=== PATIENT | female | born 1980 | race Hispanic/Latino ===

== ENCOUNTER 2024-11-10 01:11 | Emergency (ER) | payer OTHER ==
[~2024-11-10] VITALS: Ht 182.9 cm; Wt 103.9 kg
--- NOTE | 2024-11-10 01:34 | ERN ---
General Chief Complaint: Other Problems Stated Complaint: YEAST INFECTION Time Seen by MD: 01:18 Source: patient History of Present Illness Initial Comments 44-year-old female with hypertension comes in because of lower abdominal cramping. She was seen at another hospital earlier today for an upper respiratory tract infection and her throat swabs were negative for COVID strep and influenza. She was given azithromycin. She took one tablet and then a short time later experienced her lower abdominal cramping. Took a shower to help and noted at that time she had a yeast infection in her vagina. Other symptoms include productive cough postnasal drip sinus tenderness Allergies: Coded Allergies: sulfamethoxazole (Unverified Allergy, Unknown, 11/10/24) trimethoprim (Unverified Allergy, Unknown, 11/10/24) Past Medical History Past Medical History: Hypertension Past Surgical History: None Female( History) LMP: Oct 14, 2024 Constitutional: (+) chills EENTM: (-) eye pain, (-) blurred vision, (-) tearing, (-) double vision, (-) ear pain, (-) ear discharge, (-) nose pain, (-) nose congestion, (-) throat pain, (-) Throat swelling, (-) mouth pain, (-) tooth pain, (-) mouth swelling, (-) other documentation Respiratory: (+) cough Cardiovascular: (-) chest pain, (-) edema, (-) palpitations, (-) syncope, (-) dyspnea on exertion, (-) other documentation Gastrointestinal/Abdominal: (-) nausea, (-) vomiting, (-) diarrhea, (-) abdominal pain, (-) abdominal distention, (-) constipation, (-) rectal bleeding, (-) dark stool/melena, (-) other documentation Genitourinary: (+) vaginal discharge Musculoskeletal: (-) Neck pain, (-) back pain, (-) Flank Pain, (-) joint pain, (-) joint swelling, (-) muscle pain, (-) muscle stiffness, (-) gout, (-) other documentation Physical Exam General Appearance: (+) mild distress Orientation: (+) alert, (+) oriented x 3 Head/Face Trauma: No Eye: bilateral eye normal inspection, bilateral eye PERRL, bilateral eye EOMI Ear, Nose, Throat: (+) hearing grossly normal, (+) normal ENT inspection, (+) moist mucous membraine Neck: (+) normal inspection, (+) supple, (+) full range of motion Respiratory: (+) chest non-tender, (+) lungs clear, (+) well ventilated Heart: (+) regular, (+) no gallop Vascular: (+) no edema, (+) normal peripheral pulse Gastrointestinal: (+) soft, (+) non-tender, (+) bowel sound present Results Laboratory and Microbiology Lab and Micro Result Laboratory Tests Test 11/10/24 01:42 11/10/24 02:30 White Blood Count 7.3 K/uL (4.8-10.8) Red Blood Count 4.28 MIL/uL (4.00-5.50) Hemoglobin 10.9 g/dL (12.0-16.0) L Hematocrit 35.1 % (36-48) L Mean Corpuscular Volume 82.0 fL (79-99) Mean Corpuscular Hemoglobin 25.5 pg (27.0-33.0) L Mean Corpuscular Hemoglobin Concent 31.1 g/dL (32.0-36.0) L Red Cell Distribution Width 14.5 % (11.0-15.5) Platelet Count 268 K/uL (130-400) Mean Platelet Volume 9.7 fL (7.5-10.5) Immature Granulocyte % (Auto) 0.4 % (0-1) Neutrophils (%) (Auto) 80.4 % (40.0-77.0) H Lymphocytes (%) (Auto) 5.8 % (21.0-51.0) L Monocytes (%) (Auto) 11.8 % (3.0-13.0) Eosinophils (%) (Auto) 1.1 % (0.0-8.0) Basophils (%) (Auto) 0.5 % (0.0-5.0) Neutrophils # (Auto) 5.9 K/uL (1.8-7.7) Lymphocytes # (Auto) 0.4 K/uL (1.0-4.8) L Monocytes # (Auto) 0.9 K/uL (0.1-1.0) Eosinophils # (Auto) 0.08 K/uL (0.00-0.70) Basophils # (Auto) 0.04 K/uL (0.00-0.20) Absolute Immature Granulocyte (auto 0.03 K/uL (0-1) Nucleated Red Blood Cells 0.0 % (0.0-0.19) White Cell Morphology Comment See comments Sodium Level 137 mmol/L (136-145) Potassium Level 4.0 mmol/L (3.5-5.1) Chloride Level 102 mmol/L (101-111) Carbon Dioxide Level 28 mmol/L (21-32) Blood Urea Nitrogen 16 mg/dL (7-18) Creatinine 1.0 mg/dL (0.5-1.0) Glomerular Filtration Rate Calc 72 mL/min (>90) Random Glucose 144 mg/dL (70-105) H Total Calcium 9.1 mg/dL (8.5-10.1) Urine Color LIGHT-YELLOW (YELLOW) Urine Appearance CLEAR (CLEAR) Urine pH 5.5 (5.0-8.0) Urine Specific Stella 1.023 (1.001-1.031) Urine Protein NEGATIVE mg/dL (NEGATIVE) Urine Glucose (UA) NEGATIVE mg/dL (NEGATIVE) Urine Ketones NEGATIVE mg/dL (NEGATIVE) Urine Occult Blood NEGATIVE (NEGATIVE) Urine Nitrate NEGATIVE (NEGATIVE) Urine Bilirubin NEGATIVE mg/dL (NEGATIVE) Urine Urobilinogen 0.2 mg/dL (0.2-1.0) Urine Leukocyte Esterase NEGATIVE Candy/uL Urine HCG, Qualitative NEGATIVE (NEGATIVE) MDM MDM: Differential diagnosis: Abdominal pain could be secondary to the yeast infection or a urinary tract infection or a bad reaction to the azithromycin Rationale: Tests considered and ordered secondary to shared decision making include: Previous outside records reviewed: Old ER visits. Risk of complication and/or morbidity or mortality of patient management: None Medications-Per medication reconciliation Need for hospitalization: Patient does meet criteria for hospitalization. Need for emergency major/minor surgery: No There are no social concerns with this patient. Prescription drug management Prescriptions will include symptomatic care Patient's prior external medical records from other ER visits were reviewed by me as indicated. Prior testing and results from previous visits were reviewed. Prior tests were taken into account with medical decision making and resource utilization, independent historian/historians were used to obtain complete medical history. I independently interpreted the test that were performed, results were reviewed by me and considered findings on radiology if ordered. Patient's lab studies show normal white count but there is a elevation in the percentage of neutrophils. The absolute number of neutrophils is normal. Her urine is negative for a bacterial infection. Her chest x-ray is negative for pneumonia. I believe that she has a yeast infection in her vagina. I will discharge her with a prescription for Diflucan and also I will switch her oral antibiotic from azithromycin to doxycycline. ED Course Orders Procedure Category Date Status Time Basic Metabolic Panel LAB 11/10/24 Complete 01: Cbc With Differential LAB 11/10/24 Complete 01: ,Urine Test LAB 11/10/24 Complete 01:30 Urinalysis Profile LAB 11/10/24 Complete 01: Chest 1vw RAD 11/10/24 Taken 01: Vital Signs Date Time Temp Pulse Resp B/P (MAP) Pulse Ox O2 Delivery O2 Flow Rate FiO2 11/10/24 01:35 99.9 110 20 162/98 98 Room Air* 0 21 11/10/24 01:15 99.9 117 20 167/100 97 Room Air DX & DISP Disposition: Discharge Departure Impression: Primary Impression: Vaginal yeast infection Condition: Stable Scripts Fluconazole (Fluconazole) 150 Mg Tablet 1 TAB PO ONCE for 1 Day, #1 TAB 0 Refills Prov: NORMA CHATMAN MD 11/10/24 Doxycycline Hyclate (Doxycycline Hyclate) 100 Mg Capsule 1 CAP PO BID for 7 Days, #14 CAP 0 Refills Prov: NORMA CHATMAN MD 11/10/24 Additional Instructions: I think your lower abdominal pain and irritation could be due to the azithromycin. It could be due to the yeast infection. I have written a prescription for fluconazole and also I have written a prescription for doxycycline for your upper respiratory tract infection. If you have sinus pain Sudafed can improve the sinus drainage and decrease the pressure in her sinuses. Please come back to the emergency room if your respiratory symptoms in your abdominal symptoms do not improve with a in the next several days. Referrals: NONE (PCP) NORMA CHATMAN MD Nov 10, 2024 01:34
[2024-11-10 01:50] LABS: IMMATURE GRANULOCYTE ABSOLUTE 0.03 K/uL (0-1); NUCLEATED RED BLOOD CELLS 0.0 % (0.0-0.19); PLATELET COUNT (AUTO) 268 K/uL (130-400); RED BLOOD CELL COUNT(AUTO) 4.28 MIL/uL (4.00-5.50); RED CELL DISTRIBUTION WIDTH 14.5 % (11.0-15.5); WHITE BLOOD COUNT (AUTO) 7.3 K/uL (4.8-10.8)
[2024-11-10 02:00] LABS: CREATININE 1.0 mg/dL (0.5-1.0); GLOMERULAR FILTR. RATE CALC 72.0 mL/min (>90); GLUCOSE,RANDOM 144.0 mg/dL (70-105); SODIUM SERUM 137.0 mmol/L (136-145); UREA NITROGEN, BLOOD 16.0 mg/dL (7-18)
[2024-11-10 02:39] LABS: ADD UA MICROSCOPIC NO; APPEARANCE,URINE CLEAR (CLEAR); GLUCOSE, URINE (UA) NEGATIVE (NEGATIVE); LEUKOCYTE ESTERASE ,URINE NEGATIVE Leu/uL (NEGATIVE); NITRATE,URINE NEGATIVE (NEGATIVE); OCCULT BLOOD,URINE NEGATIVE (NEGATIVE)
[2024-11-10 02:40] LABS: HCG,QUALITATIVE URINE NEGATIVE (NEGATIVE)
[2024-11-10] MEDS ORDERED: DOXY100C5 PO (03:20)
[2024-11-10] MEDS ORDERED: FLUC150T48 PO (03:20)
[2024-11-10 03:30] VITALS: BP 158/85; PULSE 100; RESP 20; TEMP 99.7; O2SAT 98
--- NOTE | 2024-11-10 03:46 | HMCIMG ---
EXAM: CR Chest, 1 view CLINICAL HISTORY: Cough. COMPARISON: None provided. FINDINGS: The lungs show no infiltrates or other acute findings. No pleural effusion or pneumothorax. The cardiomediastinal silhouette is within normal limits. No acute osseous abnormality. IMPRESSION: No acute cardiopulmonary process is evident. /[place]
== END 2024-11-10 03:31 | disposition home or self-care (01) ==
LOC: EDH 01:11
DX: B37.31 Acute candidiasis of vulva and vagina (principal); I10 Essential (primary) hypertension; Z88.1 Allergy status to other antibiotic agents; Z88.2 Allergy status to sulfonamides
CPT/HCPCS: 36415; 71045; 80048; 81003; 81025; 85025; 99284